=== PATIENT | female | born 1940 | race Two or more races ===

== ENCOUNTER 2022-01-25 12:28 | Inpatient (IN) | payer OTHER ==
[~2022-01-25] VITALS: Ht 149.9 cm; Wt 53.1 kg
[2022-01-25] MEDS ORDERED: PLAVIX75 MG PO (13:01)
[2022-01-25] MEDS ORDERED: TOPROL XL50 M1 PO (13:02)
[2022-01-25] MEDS ORDERED: LANOXIN125 MCG PO (13:02)
[2022-01-25] MEDS ORDERED: SIMVASTATIN5 MG PO (13:03)
[2022-01-25] MEDS ORDERED: LEVOTHYROXINE25 MCG PO (13:03)
--- NOTE | 2022-01-25 13:04 | NUR ---
PTE REFIERE DOLOR ABDOMINAL Y VIENE REFERIDA POR DR HEDRICK
--- NOTE | 2022-01-25 13:55 | NUR ---
SE ORIENTA PTE SOBRE TX A SEGUIR, EL CUAL REFIEREN ENTENDER. SE COLECTAN MUESTRAS Y SE CANALIZA PTE UTILIZANDO MEDIDAS ASEPTICAS. SE ADMINISTRAN IV FLUIDS. PEND CT SE HACE ENTREGA DE CONTRASTE PARA ESTUDIO.
[2022-02-03] MEDS ORDERED: VOLTAREN ARTHRI20 GM TOP (10:25)
[2022-02-03] MEDS ORDERED: INTESTINEX680 M1 PO (10:26)
[2022-02-03] MEDS ORDERED: ULTRAM50 MG PO (10:26)
== END 2022-02-03 14:24 | disposition home or self-care (01) | DRG 330 ==
LOC: ER 12:28 → SEC-K 15:24 → SURH 15:24
PROVIDERS: ADMIT Surgery; ATTEND Surgery
PROC: BW21YZZ Computerized Tomography (CT Scan) of Abdomen and Pelvis using Other Contrast (ICD-10-PCS; 2022-01-25)
PROC: B24BZZZ Ultrasonography of Heart with Aorta (ICD-10-PCS; 2022-01-26)
PROC: 02HV33Z Insertion of Infusion Device into Superior Vena Cava, Percutaneous Approach (ICD-10-PCS; 2022-01-29)
PROC: 0DBP4ZZ Excision of Rectum, Percutaneous Endoscopic Approach (ICD-10-PCS; 2022-01-30)
PROC: 07BB4ZZ Excision of Mesenteric Lymphatic, Percutaneous Endoscopic Approach (ICD-10-PCS; 2022-01-30)
PROC: 0DJD8ZZ Inspection of Lower Intestinal Tract, Via Natural or Artificial Opening Endoscopic (ICD-10-PCS; 2022-01-30)
PROC: 0DTN4ZZ Resection of Sigmoid Colon, Percutaneous Endoscopic Approach (ICD-10-PCS; principal; 2022-01-30 09:30)
DX: K56.690 Other partial intestinal obstruction (principal); C18.7 Malignant neoplasm of sigmoid colon; I48.0 Paroxysmal atrial fibrillation; D50.0 Iron deficiency anemia secondary to blood loss (chronic); E03.9 Hypothyroidism, unspecified; Z20.822 Contact with and (suspected) exposure to COVID-19; I10 Essential (primary) hypertension